=== PATIENT | male | born 1990 | race Caucasian/White ===

== ENCOUNTER → 2023-03-15 | Outpatient (CLI) | payer OTHER ==
--- NOTE | 2023-03-15 12:41 | XR ---
EXAMINATION TYPE: XR knee 4V RT DATE OF EXAM: 03/15/2023 10:31 AM CLINICAL INDICATION:Male, 32 years old with history of M25.561 PAIN IN RIGHT KNEE; [facility] COMPARISON: None. TECHNIQUE: XR knee 4V RT; examined in Frontal, lateral and oblique projections. FINDINGS: No evidence of any acute osseous pathology, soft tissue swelling, or joint effusion is no ghada. Minimal osteophyte summation of patella and tibial plateau. IMPRESSION: 1. No acute osseous pathology. 2. Minimal osteoarthritic changes. Consider further evaluation with MRI.
== END | disposition home or self-care (01) ==
LOC: RADXRMAIN 10:14
PROVIDERS: ATTEND Family Medicine
DX: M17.11 Unilateral primary osteoarthritis, right knee (principal)

== ENCOUNTER → 2024-10-29 | Outpatient (CLI) | payer OTHER ==
--- NOTE | 2024-10-29 13:14 | XR ---
INDICATION: Patient age:Male; 34 years old; Reason for study: J32.9 Chronic sinusitis; [facility]. COMPARISON: None. TECHNIQUE: 2 views of the sinuses. FINDINGS/IMPRESSION: The paranasal sinuses are well aerated an without evidence of intra-cavitary fluid accumulation. No e vidence for acute fracture. The mastoid air cells are well-aerated. [facility], , 10/29/2024 1:12 PM
== END | disposition home or self-care (01) ==
LOC: RADXRMAIN 12:33
PROVIDERS: ATTEND Family Medicine
DX: J32.9 Chronic sinusitis, unspecified (principal)
CPT/HCPCS: 70220